=== PATIENT | female | born 1980 | race Caucasian/White ===

== ENCOUNTER 2020-02-27 12:51 | Outpatient (REF) | payer OTHER, BC, SELFPAY ==
[2020-02-27 14:34] LABS: Hematocrit 40.3 % (37-47); Hemoglobin 13.1 g/dl (12.0-16.0); Mean Corpuscular HGB Conc 32.5 g/dl (31.0-35.0); Mean Corpuscular Hemoglobin 28.2 pg (27.0-33.0); Mean Corpuscular Volume 86.7 fL (80-98); Mean Platelet Volume 10.3 fL (9.4-12.3); Platelet Count 355 X10*3/uL (160-400); Red Blood Count 4.65 X10*6/uL (4.20-5.50); White Blood Count 7.8 X10*3/uL (4.8-10.8)
[2020-02-27 15:13] LABS: Syphilis Screen Nonreactive (Nonreactive)
[2020-02-27 15:16] LABS: Thyroid Stimulating Hormone 1.57 mIU/mL (0.32-4.0)
[2020-02-27 17:17] LABS: CT PCR NOT DETECTED (Not Detect.); NG PCR NOT DETECTED (Not Detect.)
[2020-02-28 04:39] LABS: HBc Num1 0.07 S/CO (0.00-0.79); Hepatitis B Core Antibody Nonreactive (Nonreactive); ~HepC Num1 0.06 S/CO (0.00-0.79); ~Hepatitis C Antibody Nonreactive (Nonreactive)
== END 2020-02-27 12:52 | disposition home or self-care (01) ==
LOC: HO.LAB 12:51
PROVIDERS: PCP Internal Medicine; Referring Provider Internal Medicine; Visit Provider Advanced Practice Midwife
DX: Z01.419 Encounter for gynecological examination (general) (routine) without abnormal findings (principal); N92.0 Excessive and frequent menstruation with regular cycle; Z20.2 Contact with and (suspected) exposure to infections with a predominantly sexual mode of transmission
CPT/HCPCS: 36415; 84443; 85027; 86704; 86780; 86803; 87491; 87591

== ENCOUNTER 2020-02-27 14:09 | Outpatient (REF) | payer OTHER, BC, SELFPAY | END 2020-02-27 14:10 | disposition home or self-care (01) | LOC: HO.US 14:09 | PROVIDERS: Visit Provider Advanced Practice Midwife | DX: Z13.89 Encounter for screening for other disorder (principal) ==

== ENCOUNTER 2020-03-01 13:34 | Outpatient (REF) | payer OTHER, BC, SELFPAY ==
--- NOTE | 2020-03-01 14:00 | US_ITS ---
EXAMINATION: US PELVIS COMPLETE US TRANSVAGINAL CLINICAL INFORMATION: Excessive and frequent menstruation. COMPARISON: None TECHNIQUE: Transabdominal and transvaginal ultrasound of the pelvis was performed. FINDINGS: The uterus is anteverted measuring 9.3 cm in length, 4.4 cm in AP and 5.6 cm in transverse dimensions. The endometrial thickness is 0.9 cm. The uterus has homogeneous echotexture. There are small anechoic nabothian cysts seen in the cervix. The right ovary measures 3.7 x 2.4 x 1.9 cm and volume 8.8 mL. There is an anechoic cyst, likely a corpus luteal cyst, measuring 2.5 x 1.5 x 2.0 cm. The left ovary measures 4.5 x 3.7 x 4.5 cm and volume 39.2 mL. There is an anechoic lesion with several echogenic septations and debris, likely a complex hemorrhagic cyst, measuring 4.1 x 3.2 x 4.0 cm. There is no free fluid in the pelvis. US/US transvaginal IMPRESSION: Unremarkable uterus. Nabothian cysts in the cervix. Complex hemorrhagic cyst left ovary. The right ovary is unremarkable.
--- NOTE | 2020-03-01 14:00 | US_ITS ---
EXAMINATION: US PELVIS COMPLETE US TRANSVAGINAL CLINICAL INFORMATION: Excessive and frequent menstruation. COMPARISON: None TECHNIQUE: Transabdominal and transvaginal ultrasound of the pelvis was performed. FINDINGS: The uterus is anteverted measuring 9.3 cm in length, 4.4 cm in AP and 5.6 cm in transverse dimensions. The endometrial thickness is 0.9 cm. The uterus has homogeneous echotexture. There are small anechoic nabothian cysts seen in the cervix. The right ovary measures 3.7 x 2.4 x 1.9 cm and volume 8.8 mL. There is an anechoic cyst, likely a corpus luteal cyst, measuring 2.5 x 1.5 x 2.0 cm. The left ovary measures 4.5 x 3.7 x 4.5 cm and volume 39.2 mL. There is an anechoic lesion with several echogenic septations and debris, likely a complex hemorrhagic cyst, measuring 4.1 x 3.2 x 4.0 cm. There is no free fluid in the pelvis. US/US pelvic complete IMPRESSION: Unremarkable uterus. Nabothian cysts in the cervix. Complex hemorrhagic cyst left ovary. The right ovary is unremarkable.
== END 2020-03-01 13:35 | disposition home or self-care (01) ==
LOC: HO.US 13:34
PROVIDERS: Visit Provider Advanced Practice Midwife
DX: N92.0 Excessive and frequent menstruation with regular cycle (principal)
CPT/HCPCS: 76830; 76856

== ENCOUNTER → 2020-03-08 12:02 | Outpatient (BNVA) | payer OTHER, BC, SELFPAY | PROVIDERS: PCP Internal Medicine; Visit Provider Advanced Practice Midwife | DX: Z76.89 Persons encountering health services in other specified circumstances (principal) ==

== ENCOUNTER 2020-03-10 10:14 | Outpatient (REF) | payer OTHER, BC, SELFPAY ==
[2020-03-12 08:18] LABS: HIV AB/AG Nonreactive (Nonreactive); HIV Num 1 0.07 S/CO (0.00-0.99)
== END 2020-03-10 10:15 | disposition home or self-care (01) ==
LOC: HO.LAB 10:14
PROVIDERS: PCP Internal Medicine; Visit Provider Advanced Practice Midwife
DX: Z20.2 Contact with and (suspected) exposure to infections with a predominantly sexual mode of transmission (principal)
CPT/HCPCS: 87389

== ENCOUNTER 2020-05-07 14:55 | Outpatient (REF) | payer OTHER, BC, SELFPAY ==
--- NOTE | 2020-05-07 15:00 | US_ITS ---
EXAMINATION: PELVIC ULTRASOUND CLINICAL INFORMATION: Follow-up left ovarian COMPARISON: Previous pelvic ultrasound 02/27/2020 TECHNIQUE: Transabdominal and transvaginal pelvic ultrasound was performed. Transvaginal exam was performed for better visualization of the ovaries. FINDINGS: The uterus is anteverted and measures 10 x 4.4 x 5.1 cm in dimension. No focal uterine lesion is seen. Endometrial thickness is normal estimated at 0.9 cm. There are nabothian cysts in the cervix. The right ovary is normal-appearing and measures 2.5 x 2.4 x 2 cm. The left ovary is enlarged and measures 4.8 x 5.2 x 3.9 cm, volume 51 mL. There is a 3.8 x 3 x 3.5 cm complex left ovarian cyst with thickened wall and internal echoes. This is similar appearing to previous exam. There is a new adjacent simple appearing left ovarian cyst measuring 1.6 x 1.2 x 1.5 cm. There is no fluid in the pelvis. US/US transvaginal IMPRESSION: Enlarged left ovary containing a 3.8 x 3 x 3.5 cm complex left ovarian cyst with thickened wall and internal echoes similar to February 2020 exam and new smaller simple 1.6 x 1.2 x 1.5 cm left ovarian cyst.
--- NOTE | 2020-05-07 15:00 | US_ITS ---
EXAMINATION: PELVIC ULTRASOUND CLINICAL INFORMATION: Follow-up left ovarian COMPARISON: Previous pelvic ultrasound 02/27/2020 TECHNIQUE: Transabdominal and transvaginal pelvic ultrasound was performed. Transvaginal exam was performed for better visualization of the ovaries. FINDINGS: The uterus is anteverted and measures 10 x 4.4 x 5.1 cm in dimension. No focal uterine lesion is seen. Endometrial thickness is normal estimated at 0.9 cm. There are nabothian cysts in the cervix. The right ovary is normal-appearing and measures 2.5 x 2.4 x 2 cm. The left ovary is enlarged and measures 4.8 x 5.2 x 3.9 cm, volume 51 mL. There is a 3.8 x 3 x 3.5 cm complex left ovarian cyst with thickened wall and internal echoes. This is similar appearing to previous exam. There is a new adjacent simple appearing left ovarian cyst measuring 1.6 x 1.2 x 1.5 cm. There is no fluid in the pelvis. US/US pelvic complete IMPRESSION: Enlarged left ovary containing a 3.8 x 3 x 3.5 cm complex left ovarian cyst with thickened wall and internal echoes similar to February 2020 exam and new smaller simple 1.6 x 1.2 x 1.5 cm left ovarian cyst.
== END 2020-05-07 14:56 | disposition home or self-care (01) ==
LOC: HO.US 14:55
PROVIDERS: Visit Provider Advanced Practice Midwife
DX: N83.209 Unspecified ovarian cyst, unspecified side (principal)
CPT/HCPCS: 76830; 76856

== ENCOUNTER → 2020-05-17 15:40 | Outpatient (BNVA) | payer OTHER, BC, SELFPAY | PROVIDERS: PCP Internal Medicine; Referring Provider Internal Medicine; Visit Provider Advanced Practice Midwife ==

== ENCOUNTER 2020-05-18 15:27 | Outpatient (REF) | payer OTHER, BC, SELFPAY ==
[2020-05-19 09:32] LABS: CA-125 21 U/mL (<35)
== END 2020-05-18 15:28 | disposition home or self-care (01) ==
LOC: HO.LAB 15:27
PROVIDERS: PCP Internal Medicine; Visit Provider Advanced Practice Midwife
DX: N83.292 Other ovarian cyst, left side (principal)
CPT/HCPCS: 36415; 86304

== ENCOUNTER 2020-10-27 05:00 | Emergency (ER) | payer OTHER, BC, SELFPAY ==
--- NOTE | ~2020-10-27 | CT_ITS ---
EXAMINATION: CT HEAD WITHOUT CONTRAST CLINICAL INFORMATION: Syncope. Positive LOC. COMPARISON: None TECHNIQUE: Contiguous axial imaging was performed from the skull base to vertex without intravenous administration of contrast. This CT examination was performed using dose optimization techniques as appropriate, variously including the following: *Automated exposure control *Adjustment of mA and/or kV according to patient size (this includes techniques or standardized protocols for targeted exams where dose is matched to indication/reason for exam; i.e. extremities or head) *Use of iterative reconstruction technique DLP: 619.0 mGy-cm FINDINGS: There is no evidence of acute intracranial hemorrhage or territorial infarction. No abnormal mass effect or midline shift is seen. Jeronimo to white matter differentiation is well preserved. No extra-axial fluid collections are identified. The ventricles are normal in size. There is no abnormal attenuation within the brain parenchyma. The osseous structures and soft tissues are normal. The mastoid air cells and visualized portions of the paranasal sinuses are well aerated. CT/CT head/brain wo con IMPRESSION: No acute intracranial pathology.
[2020-10-27 05:03] VITALS: BP 95/51; PULSE 72; RESP 16; TEMP 36.4; O2SAT 98; BMI 30.2
--- NOTE | 2020-10-27 05:11 | ECG_ITS ---
Test Reason : SYNCOPE Blood Pressure : / mmHG Vent. Rate : 059 BPM Atrial Rate : 059 BPM P-R Int : 156 ms QRS Dur : 082 ms QT Int : 418 ms P-R-T Axes : 021 030 024 degrees QTc Int : 413 ms Sinus bradycardia Cannot rule out Anterior infarct , age undetermined Abnormal ECG No previous ECGs available Referred By: Generic ED Physician Electronically Signed By:IOANA RUDOLPH MD
[2020-10-27 05:47] VITALS: BP 103/61; BP 105/62; PULSE 66
[2020-10-27 05:49] VITALS: BP 101/71; PULSE 78
--- NOTE | 2020-10-27 05:57 | PC.NURSE ---
PT IS C/O BLISTER LOOKING HIVES TO LEFT ARM AND BETWEEN THIGHS. PT CHG INTO GOWN. LABS DRAWN TO LAB, EKG OBTAINED TO . PT UP TO RESTROOM FOR URINE SAMPLE SENT TO LAB FOR EVAL. PT AWAITING FOR PENDING ORDERS.
[2020-10-27 05:59] LABS: MANUAL DIFF FLAG NO
[2020-10-27 06:00] LABS: Basophils Percent Auto 0.3 % (0-2); Eosinophils Absolute Auto 0.2 X10*3/uL (0.0-0.4); Eosinophils Percent Auto 2.2 % (0-4); Hematocrit 38.4 % (37-47); Hemoglobin 12.8 g/dl (12.0-16.0); Imm Gran Abs Auto 0.02 X10*3/uL (0.00-0.03); Imm Gran Pct Auto 0.3 % (0.0-0.4); Lymphocytes Absolute Auto 2.4 X10*3/uL (1.2-4.9); Lymphocytes Percent Auto 31.9 % (20-40); Mean Corpuscular HGB Conc 33.3 g/dl (31.0-35.0); Mean Corpuscular Hemoglobin 29.1 pg (27.0-33.0); Mean Corpuscular Volume 87.3 fL (80-98); Mean Platelet Volume 9.7 fL (9.4-12.3); Monocytes Absolute Auto 0.5 X10*3/uL (0.1-1.2); Monocytes Percent Auto 7.2 % (2-11); Neutrophils Absolute Auto 4.3 X10*3/uL (2.0-8.3); Neutrophils Percent Auto 58.1 % (45-73); Platelet Count 345 X10*3/uL (160-400); Red Cell Distribution Width 12.6 % (11.0-16.0); White Blood Count 7.4 X10*3/uL (4.8-10.8)
[2020-10-27 06:10] LABS: Glucose Urine UA NEG (NEG); Leukocyte Esterase Urine NEG (NEG); Nitrite Urine NEG (NEG); Specific Gravity - Urine 1.025 (1.005-1.025); Urine Blood 3+ (NEG); Urine Ketones NEG (NEG); Urine Protein NEG (NEG-TRACE)
[2020-10-27 06:13] LABS: Appearance Urine HAZY; Color Urine DARK YELLOW; UPreg QC Valid YES; Urine Pregnancy NEGATIVE (NEGATIVE)
[2020-10-27 06:19] LABS: Mucus Urine 1+ /LPF; Squamous Epithelial Cell Urine TRACE /LPF; WBC Urine 0-2 /HPF (0-4)
[2020-10-27 06:36] LABS: Anion Gap 13 (12-20); Blood Urea Nitrogen 12 mg/dL (9-16); Carbon Dioxide 26 mmol/L (22-29); Chloride 105 mmol/L (96-108); Estimated Glomerular Filt Rate > 60; Glucose Random 96 mg/dL (60-115); Sodium 140 mmol/L (135-145)
[2020-10-27 07:11] VITALS: BP 101/71; PULSE 79; RESP 15; TEMP 36.7; O2SAT 99
--- NOTE | 2020-10-27 07:15 | ED_ITS ---
HPI - Syncope General Chief Complaint: Syncope Stated Complaint: hives/fall? Time Seen by Provider: 10/27/20 05:43 Source: patient and family ( ) Mode of arrival: ambulatory Limitations: no limitations History of Present Illness HPI narrative: 39-year-old female who presents emergency department for evaluation of swollen lip, urticarial rash and syncope. The patient had a complex left ovarian cyst and left fallopian to remove on Thursday10/23/2020 ( 5 days prior to arrival). She states that she has been taking ibuprofen, Tylenol and oxycodone for her pain. She states that she has had [id number] vaginal bleeding since the surgery, she soaked through 2 pads per day. She states that she woke up this morning at 4:00 a.m. and noted swelling in her lip. She also noted a pruritic rash on her body. She went to the bathroom and then had a syncopal episode. Her heard her fall and found her lying on the bathroom floor. He states that she was unresponsive for approximately 5 minutes. The patient was incontinent of urine and there was blood on the floor secondary to vaginal bleeding. The patient is not certain if she hit her head but she does have a mild headache. She states that she is having pain in her lower abdomen secondary to the surgery, this is [id number], dull diffuse pain which is not changed. She states she has a slight sore throat but she believes is secondary to intubation for the surgery. The patient states that she gets low blood pressure and has passed out before in the past. Related Data Home Medications Medication Instructions Recorded Confirmed No Known Home Meds 05/17/20 Allergies Allergy/AdvReac Type Severity Reaction Status Date / Time succinylcholine Allergy Unknown unk Verified 10/27/20 05:03 Review of Systems Review of Systems: Yes all other systems are reviewed and are negative [facility] Past Medical History [facility] Narrative: Past medical history: Hypotension causing syncope. Past surgical history: Left follow-up wound to and ovarian cyst remove (5 days prior). Social history: The patient is , she denies tobacco, alcohol an d drug use. Surgical History Hx of tubal ligation Family History Family History Mother Uterine cancer Maternal Aunt Breast cancer Maternal Grandmother Colon cancer Social History Social History Alcohol intake: never Advance Directives: No Advance Directives Information Provided: No Sexual orientation: Straight/Heterosexual Gender identity: female Physical Exam Vital Signs: Vital Signs: Last Vital Signs Temp 98.0 F 10/27/20 07:11 Pulse 79 10/27/20 07:11 Resp 15 10/27/20 07:11 BP 101/71 10/27/20 07:11 Pulse Ox 99 10/27/20 07:11 Body Mass Index 30.2 Const: General: cooperative and healthy appearing Orientation/consci ousness: oriented to person and oriented to place Limitations: no limitations HENMT: Head: Yes normal to inspection, Yes normocephalic and Yes atraumatic Ears: external ears normal General nose exam: Normal external nose present Face and sinus: Yes normal facial exam Mouth: Normal oral and palatal mucosa present Throat: Yes posterior oropharynx normal Eyes: Periorbital: periorbital findings normal Eyelids: Yes eyelids normal Conjunctivae: conjunctivae normal Sclerae: sclerae normal Corneas: corneas normal Pupils: Equal, round and reactive pupils present Direct Ophthalmoscopy: normal light reflex Neck: Neck: Yes full ROM, Yes no lymphadenopathy, Yes no meningeal signs, Yes trachea midline and Yes supple Chest: Chest palpation & inspection: normal inspection of the chest and normal palpation of entire chest wall Resp: Effort & Inspection: normal respiratory effort and able to speak in complete sentences Auscultation: clear to auscultation bilaterally Cardio: Rate: regular rate Rhythm: regular rhythm Heart sounds: S1 normal heart sound present, S2 normal heart sound present and no murmurs GI: Other: The patient's laparoscopic sites are intact and there was no evidence infection, the patient's abdomen does not appear to be distended, she has normoactive bowel sounds, she has [id number] diffuse tenderness of her abdomen, she has normoactive bowel sounds. : General: Yes no CVA tenderness Back/Spine/Pelvis: Back: no CVA tenderness Cervical Spine: normal cervical lordosis Thoracic/Lumbar Spine: thoracic and lumbar spine normal to inspection Skin: Other: The patient has a diffuse urticarial rash which blanches with pressure. Neuro: General: oriented to person, oriented to place and no meningeal signs Cranial nerves: Yes CN's II-XII intact bilaterally and Yes Equal, round and reactive pupils present Cognition (Neuro): normal cognition Motor exam (neuro): 5/5 motor strength present throughout Extrem: General: Yes normal to inspection and Yes full ROM Psych: Appearance: well kempt Mental Status: mental status grossly normal Speech and movement: Normal speech and movement present Affect: normal affect Attitude: cooperative Thought process: Normal thought process present Thought content: Normal thought content present Course Course Course Narrative: 39-year-old female 5 days status post left complex ovarian cyst removal and left fallopian tube removal who presents emergency department with lip swelling, diffuse urticarial rash and syncopal episode. Patient's physical examination did reveal a diffuse urticarial rash which is consistent with allergic reaction most likely secondary to oxycodone however ibuprofen and acetaminophen also need to be considered. The patient's abdomen is consistent with postoperative pain from her surgery. Her neurologic exam was nonfocal. Laboratory evaluation revealed a normal CBC and basic metabolic panel. I do not think that her syncopal episode was caused by her surgery but his problem related to her low blood pressure and vasovagal syncope that she has had in the past which was triggered by her allergic reaction. I did order CT scan of the brain to rule out skull fracture and bleed. The patient will be treated with Solu-Medrol 125 mg IV, Benadryl 50 mg IV and Pepcid 20 mg IV. 0801: The patient's CT scan of the head without IV contrast revealed no fracture or bleed. The patient's rash has completely resolved and she is feeling better. The patient was started on prednisone 40 mg once a day for 5 days, Benadryl 50 mg every 4-6 hours and Pepcid 20 mg once a day for 5 days. The patient was given verbal and printed instructions prior to discharge. The patient was advised to follow-up with their PCP in 2 days and to return to the emergency department if their symptoms get worse or if they develop any new symptoms that are concerning to them. MDM - Syncope Lab Data Result diagrams: 10/27/20 05:41 10/27/20 05:41 Labs: Lab Results 10/27/20 10/27/20 10/27/20 Range/Units 05:41 05:41 06:02 WBC 7.4 (4.8-10.8) X10*3/uL RBC 4.40 (4.20-5.50) X10*6/uL Hgb 12.8 (12.0-16.0) g/dl Hct 38.4 (37-47) % MCV 87.3 (80-98) fL MCH 29.1 (27.0-33.0) pg MCHC 33.3 (31.0-35.0) g/dl RDW 12.6 (11.0-16.0) % Plt Count 345 (160-400) X10*3/uL MPV 9.7 (9.4-12.3) fL Immature Gran % (Auto) 0.3 (0.0-0.4) % Neut % (Auto) 58.1 (45-73) % Lymph % (Auto) 31.9 (20-40) % Marshall % (Auto) 7.2 (2-11) % Eos % (Auto) 2.2 (0-4) % Baso % (Auto) 0.3 (0-2) % Lymph # (Auto) 2.4 (1.2-4.9) X10*3/uL Marshall # (Auto) 0.5 (0.1-1.2) X10*3/uL Eos # (Auto) 0.2 (0.0-0.4) X10*3/uL Baso # (Auto) 0.0 (0.0-0.2) X10*3/uL Abs Immat Gran (auto) 0.02 (0.00-0.03) X10*3/uL Absolute Neuts (auto) 4.3 (2.0-8.3) X10*3/uL Absolute Nucleated RBC 0.000 (0.0-0.012) X10*3/uL Nucleated RBC % (auto) 0.0 (0.0-0.2) /100WBC Sodium 140 (135-145) mmol/L Potassium 4.0 (3.3-5.1) mmol/L Chloride 105 (96-108) mmol/L Carbon Dioxide 26 (22-29) mmol/L Anion Gap 13 (12-20) BUN 12 (9-16) mg/dL Creatinine 0.89 (0.5-1.4) mg/dL Estim Creat Clear Calc 78.0 Estimated GFR > 60 Random Glucose 96 (60-115) mg/dL Calcium 9.0 (8.4-10.2) mg/dL Urine Color DARK YELLOW Urine Appearance HAZY Urine pH 6.0 (5.0-8.0) Ur Specific [place] 1.025 (1.005-1.025) Urine Protein NEG (NEG-TRACE) MG/DL Urine Glucose (UA) NEG (NEG) MG/DL Urine Ketones NEG (NEG) MG/DL Urine Blood 3+ H (NEG) Urine Nitrite NEG (NEG) Ur Leukocyte Esterase NEG (NEG) Urine RBC 76-150 H (0) /HPF Urine WBC 0-2 (0-4) /HPF Ur Squamous Epith Cells TRACE /LPF Urine Bacteria NONE /LPF Urine Mucus 1+ /LPF Urine Test (NEGATIVE) 10/27/20 Range/Units 06:02 WBC (4.8-10.8) X10*3/uL RBC (4.20-5.50) X10*6/uL Hgb (12.0-16.0) g/dl Hct (37-47) % MCV (80-98) fL MCH (27.0-33.0) pg MCHC (31.0-35.0) g/dl RDW (11.0-16.0) % Plt Count (160-400) X10*3/uL MPV (9.4-12.3) fL Immature Gran % (Auto) (0.0-0.4) % Neut % (Auto) (45-73) % Lymph % (Auto) (20-40) % Marshall % (Auto) (2-11) % Eos % (Auto) (0-4) % Baso % (Auto) (0-2) % Lymph # (Auto) (1.2-4.9) X10*3/uL Marshall # (Auto) (0.1-1.2) X10*3/uL Eos # (Auto) (0.0-0.4) X10*3/uL Baso # (Auto) (0.0-0.2) X10*3/uL Abs Immat Gran (auto) (0.00-0.03) X10*3/uL Absolute Neuts (auto) (2.0-8.3) X10*3/uL Absolute Nucleated RBC (0.0-0.012) X10*3/uL Nucleated RBC % (auto) (0.0-0.2) /100WBC Sodium (135-145) mmol/L Potassium (3.3-5.1) mmol/L Chloride (96-108) mmol/L Carbon Dioxide (22-29) mmol/L Anion Gap (12-20) BUN (9-16) mg/dL Creatinine (0.5-1.4) mg/dL Estim Creat Clear Calc Estimated GFR Random Glucose (60-115) mg/dL Calcium (8.4-10.2) mg/dL Urine Color Urine Appearance Urine pH (5.0-8.0) Ur Specific [place] (1.005-1.025) Urine Protein (NEG-TRACE) MG/DL Urine Glucose (UA) (NEG) MG/DL Urine Ketones (NEG) MG/DL Urine Blood (NEG) Urine Nitrite (NEG) Ur Leukocyte Esterase (NEG) Urine RBC (0) /HPF Urine WBC (0-4) /HPF Ur Squamous Epith Cells /LPF Urine Bacteria /LPF Urine Mucus /LPF Urine Test NEGATIVE (NEGATIVE) ECG Data Attestation: I personally reviewed and interpreted this ECG as follows: Interpretation: 0545: Sinus bradycardia with a rate of 59, normal [place] interval, QRS duration and QTC interval, no ST segment elevation, no ST segment depression, inverted T-waves V1 and V2, no PACs, no PVCs. This is a normal EKG. Discharge Plan Discharge Clinical Impression: Vasovagal syncope, Allergic urticaria Closed head injury Qualifiers: Encounter type: initial encounter Qualified Code(s): S09.90XA - Unspecified injury of head, initial encounter Patient Disposition: Home, Self-Care Instructions: Allergies (ED), Head Injury (ED) Additional Instructions: Your blood work was normal. The CT scan of your head revealed no skull fracture or bleeding in the brain. Your presentation is consistent with an allergic reaction most likely secondary to oxycodone. Stop taking oxycodone and do not take this medication again in the future. Take prednisone 20 mg pills, 2 pills once a day for 5 days. Take Pepcid 20 mg pills, 1 pill once a day for 5 days. Take Benadryl 25 mg pills, 2 pills every 4-6 hours as needed for rash and itchiness. Take this at least 3 times today then after today you can take it as needed. Follow-up with your doctor in 2 days. Follow-up with your doctor in 2 days. Please return to the emergency department if your symptoms get worse or if you develop any symptoms that are concerning to you. Prescriptions: No Action No Known Home Meds RF: 0
[2020-10-27] MEDS: methylPREDNISolone Sod Succ 125 MG/2 ML VIAL IVPUSH (07:26)
[2020-10-27] MEDS: diphenhydrAMINE HCL 50 MG/ML VIAL IVPUSH (07:26)
[2020-10-27] MEDS: Famotidine/PF 20 MG/2 ML VIAL IVPUSH (07:26)
== END 2020-10-27 08:15 | disposition home or self-care (01) ==
PROVIDERS: Student in an Organized Health Care Education/Training Program; Emergency Provider Emergency Medicine Emergency Medical Services; PCP Internal Medicine
DX: R55 Syncope and collapse (principal); L50.0 Allergic urticaria; S09.90XA Unspecified injury of head, initial encounter; I95.9 Hypotension, unspecified; W18.30XA Fall on same level, unspecified, initial encounter; Y93.9 Activity, unspecified; Y92.002 Bathroom of unspecified non-institutional (private) residence as the place of occurrence of the external cause; Y99.9 Unspecified external cause status; Z98.890 Other specified postprocedural states
CPT/HCPCS: 36415; 70450; 80048; 81001; 81025; 85025; 93005; 96374; 96375; 99284; J1200; J2930

== ENCOUNTER 2021-08-22 07:54 | Outpatient (REF) | payer OTHER, BC, SELFPAY ==
[2021-08-22 09:49] LABS: Hematocrit 37.9 % (37.0-47.0); Hemoglobin 12.4 g/dl (12.0-16.0); Mean Corpuscular HGB Conc 32.7 g/dl (31.0-35.0); Mean Corpuscular Hemoglobin 27.6 pg (27.0-33.0); Mean Corpuscular Volume 84.4 fL (80.0-98.0); Mean Platelet Volume 10.6 fL (9.4-12.3); Platelet Count 362 X10*3/uL (160-400); Red Blood Count 4.49 X10*6/uL (4.20-5.50); White Blood Count 6.2 X10*3/uL (4.8-10.8)
[2021-08-22 10:53] LABS: HCG Quantitative < 2 mIU/mL; TSH reflex Free T4 1.32 uIU/mL (0.32-4.0)
[2021-08-22 13:01] LABS: CT PCR NOT DETECTED (Not Detect.); NG PCR NOT DETECTED (Not Detect.)
[2021-08-24 14:45] LABS: HPV mRNA E6/E7 rflx Not Detected (Not Detected)
== END 2021-08-22 07:55 | disposition home or self-care (01) ==
LOC: HO.LAB 07:54
PROVIDERS: PCP Internal Medicine; Visit Provider Obstetrics & Gynecology
DX: Z01.411 Encounter for gynecological examination (general) (routine) with abnormal findings (principal); Z11.51 Encounter for screening for human papillomavirus (HPV); N93.9 Abnormal uterine and vaginal bleeding, unspecified
CPT/HCPCS: 36415; 81025; 84443; 84702; 85027; 87491; 87591; 87624; 88142

== ENCOUNTER 2021-09-11 15:19 | Outpatient (REF) | payer OTHER, BC, SELFPAY ==
--- NOTE | ~2021-09-11 | US_ITS ---
EXAMINATION: US PELVIS CLINICAL INFORMATION: Abnormal uterine and vaginal bleeding. COMPARISON: None TECHNIQUE: Ultrasound of the pelvis is performed using both transabdominal and transvaginal transducers along with Doppler. Transvaginal imaging is performed due to inadequate visualization transabdominally. FINDINGS: Uterus: The uterus is anteverted, retroflexed and measures 11.0 x 4.7 x 5.0 cm. The double wall endometrial thickness is 1.2 cm. The uterus is smooth in contour and has normal myometrial echogenicity. No visible fibroid. Adnexa: Both ovaries are visualized. There is normal color flow to the adnexa. There is no ovarian torsion. There is no pelvic ascites or fluid collection. Right ovary measures 3.1 x 2.5 x 2.1 cm and volume 8.5 mL. There are 2 anechoic cysts measuring 2.1 x 1.4 x 1.5 cm and 1.6 x 0.9 x 1.2 cm. Left ovary has been removed. There is no free fluid in the cul-de-sac. There are small anechoic nabothian cysts seen in the cervix. US/US pelvic and transvaginal IMPRESSION: Small nabothian cysts in the cervix. 2 right ovarian simple cysts. Left ovary has been removed. The uterus is unremarkable.
== END 2021-09-11 15:20 | disposition home or self-care (01) ==
LOC: HO.US 15:19
PROVIDERS: Visit Provider Obstetrics & Gynecology
DX: N93.9 Abnormal uterine and vaginal bleeding, unspecified (principal)
CPT/HCPCS: 76830; 76856

== ENCOUNTER 2021-09-25 10:09 | Outpatient (REF) | payer OTHER, BC, SELFPAY | END 2021-09-25 10:10 | disposition home or self-care (01) | LOC: HO.LAB 10:09 | PROVIDERS: PCP Internal Medicine; Visit Provider Obstetrics & Gynecology | DX: N93.9 Abnormal uterine and vaginal bleeding, unspecified (principal) | CPT/HCPCS: 58100; 88305 ==

== ENCOUNTER 2021-12-09 15:29 | Outpatient (REF) | payer OTHER, BC, SELFPAY ==
--- NOTE | ~2021-12-09 | MM_ITS ---
EXAMINATION: MM SCREENING DIGITAL BREAST TOMOSYNTHESIS, BILATERAL CLINICAL INFORMATION: Screening. Asymptomatic. No prior breast imaging. Age 41. The lifetime risk of breast cancer based on the Tyrer-Cuzick Model is 16%. COMPARISON: None (current study represents initial baseline exam). TECHNIQUE: Digital breast tomosynthesis is performed in both the craniocaudal and mediolateral oblique views along with computer-aided detection (CAD). Synthesized 2D images are generated from the tomosynthesis. FINDINGS: There are scattered areas of fibroglandular density (ACR BI-RADS breast composition Category b). Breast tissue composition borders on heterogeneously dense. There are scattered bilateral punctate round and some coarse round calcifications in each breast. There is no architectural abnormality. Left breast shows no mass. The axilla and skin contours are unremarkable. Right breast has bilobed versus 2 adjacent nodules mid 12:00 position with smooth margins and overall dimensions approximately 1.1 x 1.8 x 1.1 cm. As this represents initial baseline exam, patient will be recalled for additional imaging with targeted ultrasound. MM/MM tomosynthesis screening BI IMPRESSION: Right: -Smooth bilobed versus 2 adjacent nodules mid 12:00 position, 1.8 cm. Left: -No mammographic evidence of malignancy. ASSESSMENT: BI-RADS 0: Incomplete - Need Additional Imaging Evaluation RECOMMENDATION: 1. Targeted ultrasound right breast. 2. Radiology department staff will contact the patient for additional imaging. This patient's information was entered into a reminder system with a target due date for their next mammogram.
== END 2021-12-09 15:30 | disposition home or self-care (01) ==
LOC: HO.MAMMO 15:29
PROVIDERS: PCP Internal Medicine; Visit Provider Obstetrics & Gynecology
DX: Z12.31 Encounter for screening mammogram for malignant neoplasm of breast (principal)
CPT/HCPCS: 77063; 77067

== ENCOUNTER 2021-12-16 13:25 | Outpatient (REF) | payer OTHER, BC, SELFPAY ==
--- NOTE | ~2021-12-16 | US_ITS ---
EXAMINATION: US DIAGNOSTIC ULTRASOUND BREAST, RIGHT CLINICAL INFORMATION: Density 12:00 position 4 cm from the nipple. Patient has a family history of breast cancer with maternal grandmother and maternal aunt at the age of 46. COMPARISON: December 09, 2021. TECHNIQUE: Ultrasound of the breast is performed with real-time sanches scale imaging and color Doppler. FINDINGS: At approximately the 12:00 position 5 cm from nipple there is a bilobed hypoechoic structure whose borders I can't say are well-circumscribed. There also appear to be some internal echoes present. No increased through sound transmission or sound shadowing is appreciated. This may represent a complex cyst however I cannot exclude a solid lesion and ultrasound-guided core biopsy is recommended. Results are discussed with the patient at time of visit. Breast center records management director called referring provider's office with the above report. US/US breast RT limited IMPRESSION: Right breast mammographic density corresponds to hypoechoic lesion 12:00 position 5 cm from nipple which I cannot definitely say represents a cyst. Ultrasound-guided core biopsy is recommended. ASSESSMENT: BI-RADS 4: Suspicious (subcategory 4A: Low suspicion for malignancy) RECOMMENDATION: Ultrasound-guided core biopsy
== END 2021-12-16 13:26 | disposition home or self-care (01) ==
LOC: HO.MAMMO 13:25
PROVIDERS: PCP Internal Medicine; Visit Provider Obstetrics & Gynecology
DX: N63.15 Unspecified lump in the right breast, overlapping quadrants (principal)
CPT/HCPCS: 76642

== ENCOUNTER 2021-12-19 07:49 | Outpatient (REF) | payer OTHER, BC, SELFPAY ==
--- NOTE | ~2021-12-19 | MM_ITS ---
PROCEDURE: MM TOMOSYNTHESIS DIAGNOSTIC, RIGHT CLINICAL INFORMATION: Hypoechoic lesion deep adjacent to muscle wall with questionable irregular margins and no significant distal sound enhancement. This may represent a complex cyst. COMPARISON: 12/16/2021 and mammography of 12/09/2021. PROCEDURAL DETAILS: The details of the procedure, as well as the risks, benefits, and alternatives to the procedure were explained to the patient in detail and all of her questions were answered, after which written informed consent was obtained. Site and side were confirmed. Prior to the procedure, sonography revealed a hypoechoic lesion right breast 12 o'clock position, 5 cm from the nipple. A time out was performed, the lesion intended for aspiration was targeted, and the skin of the right breast was then prepped and draped in the usual sterile fashion. Using sonographic guidance, sterile technique, and 1% lidocaine without epinephrine for local anesthesia, an 18-gauge spinal needle was placed into the lesion and approximately 1 mL of thick black fluid was removed. No residual suspicious soft tissue mass is appreciated with collapse of the cyst. A clip was not placed. There was no evidence of immediate complication. DIGITAL POST-PROCEDURE MAMMOGRAPHY: Breast density: The tissue is heterogeneously dense which may obscure small masses. BI-RADS version 5, category C. The previously noted density is no longer definitely identified. The patient tolerated the procedure well and, after assuring adequate hemostasis, was discharged in good condition after reviewing post aspiration breast care instructions. MM/MM tomosynthesis diagnostic RT IMPRESSION: 1. No immediate complication from ultrasound-guided percutaneous aspiration right breast. 2. The 2-view direct digital postprocedure mammogram reveals satisfactory appearance following cyst aspiration. BI-RADS 2, benign. One-year screening mammogram suggested.
[2021-12-19] MEDS: Lidocaine HCl 1 % 20 ML VIAL 10 ML SUBCUT (08:49)
== END 2021-12-19 07:50 | disposition home or self-care (01) ==
LOC: HO.MAMMO 07:49
PROVIDERS: PCP Internal Medicine; Visit Provider Obstetrics & Gynecology
DX: R92.8 Other abnormal and inconclusive findings on diagnostic imaging of breast (principal)
CPT/HCPCS: 19083; 77061; 77065

== ENCOUNTER 2022-04-25 04:56 | Emergency (ER) | payer OTHER, BC, SELFPAY ==
--- NOTE | ~2022-04-25 | XR_ITS ---
EXAMINATION: XR CHEST CLINICAL INFORMATION: SOB. COMPARISON: None TECHNIQUE: 2 views of the chest were obtained. FINDINGS: The lungs are well-expanded and clear. The heart size and pulmonary vascularity is normal. There is mild dextro scoliosis lower dorsal spine. No aggressive lytic or sclerotic process seen. XR/XR chest 2V IMPRESSION: Unremarkable chest examination. Mild dextroscoliosis lower dorsal spine
[2022-04-25 05:08] VITALS: BP 125/81; PULSE 81; RESP 20; TEMP 37.4; O2SAT 97; BMI 32.1
[2022-04-25 05:38] LABS: COVID-19 Test Negative (Negative); IDNOW Serial# BCCEAD1C
[2022-04-25 05:43] LABS: IDNOW Serial# 16C4AD1C; Influenza A Positive (Negative); Influenza B2 Negative (Negative)
[2022-04-25 07:18] VITALS: BP 115/82; PULSE 80; RESP 18; TEMP 36.6; O2SAT 99
--- NOTE | 2022-04-25 08:02 | ED_ITS ---
HPI - URI/Sore Throat General Chief Complaint: Upper Respiratory Symptoms Stated Complaint: Fever/Sob Time Seen by Provider: 04/25/22 08:02 Source: patient and family Mode of arrival: ambulatory Limitations: no limitations History of Present Illness HPI Narrative: 41-year-old female otherwise healthy who presents to the ER for evaluation of 4 days of body aches, headaches, nasal congestion, runny nose, cough associated with rattling breathing. She states she feels there are noise in her chest when she takes deep breaths. It is she feels she is having some shortness of breath and difficulty breathing. She denies any pulmonary history, she is a nonsmoker. She states her partner is also home with similar symptoms, except hers are worse. She denies any chest pain but she does have some chest discomfort associated with coughing. She is bringing up white phlegm. She has had intermittent fevers on and off since Thursday. MD elicited complaint: fever, cough, rhinorrhea, nasal congestion and other (Shortness of breath) Onset (ago): day(s) (4) Consistency: progressively worsening Severity: moderate Description of mucous: clear and watery Able to tolerate fluids by mouth: Yes Exacerbating factors: nothing Relieving factors: nothing Context: sick contacts Associated symptoms: fever, chills, myalgias, headache, rhinorrhea, nasal congestion, sore throat, cough and shortness of breath Treatments prior to arrival: none Related Data Previous Rx's Medication Instructions Recorded medroxyprogesterone 10 mg tablet 10 mg PO DAILY 10 days #30 tabs 02/11/22 (Provera) hydrocodone-homatropine 5 mg-1.5 5 ml PO Q4-6H PRN cough #60 mL 04/25/22 mg/5 mL (5 mL) oral syrup (Hycodan) prednisone 20 mg tablet 40 mg PO DAILY #10 tabs 04/25/22 Allergies Allergy/AdvReac Type Severity Reaction Status Date / Time succinylcholine Allergy Unknown unk Verified 04/25/22 05:11 Review of Systems Review of Systems: Constitutional: + Fever, No Chills ENT/Mouth: + sore throat, No Rhinorrhea, No Swallowing Difficulty Eyes: No Eye Pain, No Swelling, No Redness Cardiovascular: No Chest Pain, + SOB, No Orthopnea, No Edema Respiratory: + Cough, + Sputum, + Wheezing, No dyspnea Gastrointestinal: No Nausea, No Vomiting, No Diarrhea, No abdominal Pain Musculoskeletal: No joint pain, +Myalgias Skin: No Skin Lesions, No rash Neuro: No Weakness, No Numbness, No Dizziness, + Headache Heme/Lymph: No Bruising, No Lymphadenopathy [facility] Past Medical History Surgical History History of left salpingo-oophorectomy Hx of tubal ligation Family History Family History Mother Uterine cancer Maternal Aunt Breast cancer Maternal Grandmother Colon cancer Social History Social History Alcohol intake: never Patient Tobacco Use Status: Never used Tobacco Advance Directives: No Advance Directives Information Provided: Yes Sexual orientation: Straight/Heterosexual Gender identity: Female Physical Exam Vital Signs: Vital Signs: Last Vital Signs Temp 98.0 F 04/25/22 08:16 Pulse 78 04/25/22 08:16 Resp 18 04/25/22 08:44 BP 119/79 04/25/22 08:16 Pulse Ox 98 04/25/22 08:44 O2 Del Method 04/25/22 08:44 BMI result Body Mass Index 32.1 Appearance: Alert. Oriented X3. No acute distress. Eyes: Pupils equal, round and reactive to light. ENT: Pharynx normal. Moist mucous membranes. No tonsillar swelling or exudate. Uvula midline. Neck: Normal inspection. Neck supple. CVS: Normal heart rate and rhythm. Pulses normal. Respiratory: No respiratory distress. Scattered inspiratory and expiratory wheezes throughout with rhonchi at the bilateral bases. Congested cough. Abdomen: Soft and nontender. +BS x4 Skin: Skin warm and dry. Normal skin color. Normal skin turgor. No rashes. Extremities: No lower extremity edema. No lower extremity swelling or tenderness. Neuro: Oriented X 3. Grossly normal, nonfocal Course Course Course Narrative: 41-year-old female presenting to the ER for evaluation of flu-like symptoms and rattling sensation when she breathes. On arrival to the ER she is hemodynamically stable and oxygenating well. On examination her lungs scattered wheezing and rhonchi. She is positive for influenza A. Most likely viral process but will get chest x-ray to rule out bacterial pneumonia. Will give her albuterol inhaler and reassess. Reevaluation(s) Reevaluation #1: Chest x-ray without pneumonia. Patient given albuterol inhaler with significant improvement in wheezing and rhonchi. Lung sounds are now clear. Will discharge with prednisone and antitussive. Stable for discharge home. Patient agrees with plan. Medications Administered Discontinued Medications Generic Name Dose Route Start Last Admin Trade Name Freq PRN Reason Stop Dose Admin Albuterol Sulfate 2 puff 04/25/22 08:14 04/25/22 08:27 Albuterol Sulfate 90 Mcg 8 Gm Inhaler INHALE 04/25/22 08:15 2 puff ONCE ONE Administration Medical Decision Making Lab Data Labs: Lab Results 04/25/22 04/25/22 Range/Units 05:12 05:12 COVID-19 (MYRIAM) Negative (Negative) COVID-19 Clin Com See Note Influenza Type A (BELLA) Positive A (Negative) Influenza Type B (BELLA) Negative (Negative) Influenza A & B Note See Note Discharge Plan Discharge Clinical Impression: Influenza Patient Disposition: Home, Self-Care Instructions: Influenza (ED) Additional Instructions: You were found to be Influenza A POSITIVE today. Your x-ray and oxygen levels were normal. Rest. Drink plenty of fluids. Do not go out in public while you are not feeling well. Take over the counter cold/flu medications as needed for your symptoms. Use the prescribed inhaler as directed, you can use this every 4 hours as needed for shortness of breath or wheezing. Take the prescribed steroid as directed, complete the entire course. Take the prescribed cough medicine as needed for coughing. Do not drive after taking this, can make you drowsy. Take Tylenol and/or Motrin as needed for fevers and body aches. Follow up with your doctor as needed If you shortness of breath worsens, if you develop difficulty breathing or any other concerning symptom come back to the ER for further evaluation. Prescriptions: New prednisone 20 mg tablet 40 mg PO DAILY Qty: 10 0RF hydrocodone-homatropine [Hycodan] 5-1.5 mg/5 mL (5 mL) syrup 5 ml PO Q4-6H PRN (Reason: cough) Qty: 60 0RF Rx Instructions: Partial Fill upon patient request. No Action medroxyprogesterone [Provera] 10 mg tablet 10 mg PO DAILY 10 Days Qty: 30 3RF Rx Instructions: start Provera 1 tablet daily from day 15-24 cyclically every months, day 1 being 1st day of menses Stand Alone Forms: Work/School Release
[2022-04-25 08:16] VITALS: BP 119/79; PULSE 78; RESP 18; TEMP 36.7; O2SAT 98
[2022-04-25] MEDS: Albuterol Sulfate 90 MCG 8 GM INHALER 2 PUFF INHALE (08:27)
[2022-04-25 08:44] VITALS: RESP 18; O2SAT 98
== END 2022-04-25 09:21 | disposition home or self-care (01) ==
PROVIDERS: Emergency Provider Student in an Organized Health Care Education/Training Program; PCP Internal Medicine
DX: R50.9 Fever, unspecified (principal); J10.1 Influenza due to other identified influenza virus with other respiratory manifestations; R06.02 Shortness of breath; M79.10 Myalgia, unspecified site; Z20.822 Contact with and (suspected) exposure to COVID-19; Z79.899 Other long term (current) drug therapy
CPT/HCPCS: 71046; 87502; 87635; 99283; 99284

== ENCOUNTER → 2022-08-12 15:07 | Outpatient (BNVA) | payer OTHER, BC, SELFPAY | PROVIDERS: PCP Internal Medicine; Visit Provider Obstetrics & Gynecology | DX: Z13.89 Encounter for screening for other disorder (principal) ==

== ENCOUNTER 2022-12-15 15:42 | Outpatient (REF) | payer OTHER, BC, SELFPAY ==
--- NOTE | ~2022-12-15 | MM_ITS ---
EXAMINATION: MM SCREENING DIGITAL BREAST TOMOSYNTHESIS, BILATERAL CLINICAL INFORMATION: Screening. Asymptomatic. COMPARISON: Mammography: This study is compared with prior exams dating back to 2021. TECHNIQUE: Digital breast tomosynthesis is performed in both the craniocaudal and mediolateral oblique views along with computer-aided detection (CAD). Synthesized 2D images are generated from the tomosynthesis. FINDINGS: The breasts are heterogeneously dense, which may obscure small masses (ACR BI-RADS breast composition Category c). There are no significant masses, abnormal calcifications, or other abnormalities. MM/MM tomosynthesis screening BI IMPRESSION: No mammographic evidence of malignancy. ASSESSMENT: BI-RADS BI-RADS 1 - Negative RECOMMENDATION: Routine annual mammography screening. 1 year F/U This examination should not preclude the clinical evaluation of a suspicious palpable abnormality. This patient's information was entered into a reminder system with a target due date for their next mammogram.
== END 2022-12-15 15:43 | disposition home or self-care (01) ==
LOC: HO.MAMMO 15:42
PROVIDERS: PCP Internal Medicine; Visit Provider Internal Medicine
DX: Z12.31 Encounter for screening mammogram for malignant neoplasm of breast (principal)
CPT/HCPCS: 77063; 77067

== ENCOUNTER → 2022-12-15 16:00 | Outpatient (BNV) | payer OTHER, BC, SELFPAY | PROVIDERS: PCP Internal Medicine; Visit Provider Radiology Diagnostic Radiology | DX: Z12.31 Encounter for screening mammogram for malignant neoplasm of breast (principal) | CPT/HCPCS: 77063; 77067 ==

== ENCOUNTER 2023-08-17 14:58 | Outpatient (AMB) | payer OTHER, BC, SELFPAY ==
--- NOTE | 2023-08-17 15:02 | A.OFFVIS_ITS ---
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 Sexual orientation: Straight/Heterosexual Gender identity: Female Female Reproductive History Menstrual Age of Menarche: 11 Duration of menses: 6-7 days Date of last menstrual period: 07/27/23 control method: permanent sterilization Permanent Sterilization: BTL Total pregnancies: 2 Full term: 2 Number of Living Children: 2 Date of last pap smear: 08/22/21 (neg pap and hpv) Date of Mammogram: 12/15/22 Review of Systems Const All systems reviewed & are unremarkable except as noted in HPI and below Card Reports as per HPI Resp Reports as per HPI GI Reports as per HPI and Reports no additional complaints Reports as per HPI Physical Exam Vital Signs: Last Vital Signs BP 92/60 08/17/23 15:03 BMI result Body Mass Index 33.4 Const General: cooperative, healthy appearing and comfortable Chest Chest palpation & inspection: normal inspection of the chest and normal palpation of entire chest wall Breast/axilla inspection: normal inspection of the breasts and normal inspection of the axillae Breast/axilla palpation: normal palpation of the breasts, normal palpation of the axillae and no axillary lymphadenopathy Resp Effort & Inspection: normal respiratory effort Auscultation: clear to auscultation bilaterally Percussion: percussion normal Cardio Palpation: normal PMI Rate: regular rate Rhythm: regular rhythm Heart sounds: no murmurs and no rubs Peripheral pulses: Peripheral pulses 2+ throughout GI Inspection: Yes normal to inspection Palpation (GI): Soft to palpation, nontender, no guarding, not rigid and No hepatosplenomegaly present Percussion: Yes normal to percussion Auscultation: normal bowel sounds Rectal Exam - Female: deferred General: Yes bladder normal to palpation External Female Exam: No lesion Speculum Exam - Vagina: normal appearance of the vagina, normal palpation, normal vaginal discharge and not erythematous Speculum Exam - Cervix: normal appearance of the cervix and normal palpation Bimanual exam- vagina & uterus: normal bimanual exam, normal palpation, uterine size normal, bladder normal to palpation, consistency normal and normal palpation Bimanual Exam- Adnexa, other: normal adnexae, no masses and no tenderness Assessment & Plan Assessment & Plan (1) Well woman exam: Code(s): Z01.419 - Encounter for gynecological examination (general) (routine) without abnormal findings Category: Medical Plan: Cotesting not indicated this Instructions given the patient to schedule next screening Mammogram in 12/18. Counseled the patient about the recommended dietary allowance of 1000 mg of Calcium & 600 IU of vitamin D. The patient was instructed to perform monthly self-breast exams and to schedule an annual exam in a year; All questions answered and the patient verbalized understanding. Instructed the patient to schedule annual exam in a year (2) Abnormal ultrasound of breast: Code(s): R92.8 - Other abnormal and inconclusive findings on diagnostic imaging of breast Category: Medical Plan: Co testing not indicated this, GC and chlamydia taken CBC, prolactin, TSH, HCG, and pelvic ultrasound ordered. Discussed with the patient the different causes of abnormal bleeding including thyroid disorders, uterine and ovarian pathology, endometrial hyperplasia, carcinoma and other potential causes. Discussed with the patient the work up including CBC (to r/o anemia), TSH, pelvic Ultrasound, endometrial biopsy to r/o endometrial pathology. All questions answered and the patient verbalized understanding. Instructed the patient to schedule an appointment for an endometrial biopsy in 2 weeks. Orders: Orders Complete Blood Count no Diff Today N93.9 - Abnormal uterine and vaginal bleeding, unspecified Prolactin Today N93.9 - Abnormal uterine and vaginal bleeding, unspecified HCG Quantitative Today N93.9 - Abnormal uterine and vaginal bleeding, uns pecified TSH reflex Free T4 Today N93.9 - Abnormal uterine and vaginal bleeding, unspecified US pelvic and transvaginal Today N93.9 - Abnormal uterine and vaginal bleeding, unspecified
[2023-08-17 15:03] VITALS: BP 92/60; BMI 33.4
== END 2023-08-17 15:33 | disposition home or self-care (01) ==
LOC: HO.HWS 14:59
PROVIDERS: PCP Internal Medicine; Visit Provider Obstetrics & Gynecology
DX: Z01.419 Encounter for gynecological examination (general) (routine) without abnormal findings (principal); R92.8 Other abnormal and inconclusive findings on diagnostic imaging of breast
CPT/HCPCS: 99396

== ENCOUNTER 2023-08-17 15:31 | Outpatient (REF) | payer OTHER, BC, SELFPAY ==
[2023-08-17 16:17] LABS: Hematocrit 38.7 % (37.0-47.0); Hemoglobin 12.9 g/dl (12.0-16.0); Mean Corpuscular HGB Conc 33.3 g/dl (31.0-35.0); Mean Corpuscular Hemoglobin 28.4 pg (27.0-33.0); Mean Corpuscular Volume 85.1 fL (80.0-98.0); Mean Platelet Volume 9.9 fL (9.4-12.3); Platelet Count 323 X10*3/uL (160-400); Red Blood Count 4.55 X10*6/uL (4.20-5.50); Red Cell Distribution Width 12.8 % (11.0-16.0); White Blood Count 8.1 X10*3/uL (4.8-10.8)
[2023-08-17 17:00] LABS: HCG Quantitative < 2 mIU/mL; TSH reflex Free T4 1.46 uIU/mL (0.32-4.0)
[2023-08-18 06:38] LABS: CT PCR NOT DETECTED (Not Detect.); NG PCR NOT DETECTED (Not Detect.)
[2023-08-18 09:53] LABS: Prolactin 17.2 ng/mL
== END 2023-08-17 15:32 | disposition home or self-care (01) ==
LOC: HO.LAB 15:31
PROVIDERS: Visit Provider Obstetrics & Gynecology
DX: N93.9 Abnormal uterine and vaginal bleeding, unspecified (principal); Z20.2 Contact with and (suspected) exposure to infections with a predominantly sexual mode of transmission
CPT/HCPCS: 0353U; 84146; 84443; 84702; 85027

== ENCOUNTER 2023-09-03 15:14 | Outpatient (REF) | payer OTHER, BC, SELFPAY ==
--- NOTE | ~2023-09-03 | US_ITS ---
EXAMINATION: US PELVIS COMPLETE CLINICAL INFORMATION: Abnormal uterine bleeding COMPARISON: Pelvic ultrasound 09/11/2021 TECHNIQUE: Transabdominal and transvaginal imaging was performed. FINDINGS: The uterus is of normal size and echogenicity measuring 10.6 x 5.0 x 4.9 cm. A regular homogeneous endometrium is identified measuring 0.6 cm. Nabothian cysts in the cervix. The left ovary is surgically absent.. The right ovary measures 5.5 x 3.0 x 2.3 cm for a volume of 19.9 mL. The right ovary is remarkable for a 3.1 cm benign functional cyst, no follow-up imaging recommended. No suspicious adnexal mass. There is no pelvic free fluid. US/US pelvic and transvaginal IMPRESSION: 1. The left ovary is surgically absent. 2. The right ovary is remarkable for a 3.1 cm benign functional cyst, no follow-up imaging recommended. 3. Unremarkable sonographic appearance of the uterus.
== END 2023-09-03 15:15 | disposition home or self-care (01) ==
LOC: HO.US 15:14
PROVIDERS: PCP Internal Medicine; Visit Provider Obstetrics & Gynecology
DX: N93.9 Abnormal uterine and vaginal bleeding, unspecified (principal)
CPT/HCPCS: 76830; 76856

== ENCOUNTER 2023-09-30 14:57 | Outpatient (AMB) | payer OTHER, BC, SELFPAY ==
[2023-09-30 15:03] VITALS: BP 98/60; BMI 33.3
--- NOTE | 2023-09-30 15:03 | MHC.OFFVIS ---
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 Present (Abbi MARY) Accompanied by: Self / Same As Patient Allergies succinylcholine Allergy (Unknown, Verified 09/30/23 15:14) unk Is last menstrual period known: Yes Last menstrual period: 09/05/23 HPI Comments Details: Presenting for EMB ON LICENSE OF [facility] Surgical History History of left salpingo-oophorectomy Hx of tubal ligation Family History Mother Uterine cancer Maternal Aunt Breast cancer Maternal Grandmother Colon cancer Social History Household Members: Spouse and Children Housing: House Alcohol intake: never Patient Tobacco Use Status: Never used Tobacco Current occupational status: employed 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 hysteroscopy D&C) & the risks were discussed with the patient including but not limited: pain, uterine perforation, bleeding, infection, possible injury to bladder, bowel, ureter, possible need for blood transfusion with all its possible risks. The patient verbalized understanding all questions answered and signed consent. Urine test done in the office was negative The patient was placed into the dorsal lithotomy position; a speculum was inserted in the vagina. Using aseptic technique for the procedure, the cervix was cleansed with Betadine. The anterior lip of the cervix was grasped with a single tooth tenaculum. The uterus was sounded to 7 cm with a 4 mm Pipelle was used. Tissues samples were obtained and placed in formalin, in a patient labeled container and sent to the pathology department. At the end of the procedure, there was minimal bleeding noted The patient tolerated the procedure well and was discharged in good condition with the following instructions: Nothing in the vagina until the bleeding stops. No sex until the bleeding stops, to call if any of the following occurs: fever (>100.4), flu-like symptoms, abdominal pain, heavy bleeding, four smelling vaginal discharge. The patient was instructed to schedule a Follow up appointment in 2 weeks to discuss pathology results of the biopsy and treatment options. This note was generated with a voice recognition program. Some errors may have been overlooked during the review of this note. Sometimes these errors may affect the content or meaning of a given sentence. [id number] Biopsy Assessment & Plan Assessment & Plan (1) Abnormal uterine bleeding: Code(s): N93.9 - Abnormal uterine and vaginal bleeding, unspecified Category: Medical Plan: EMB done, see procedure note Orders: Orders AMB Endometrial Biopsy Today N93.9 - Abnormal uterine and vaginal bleeding, unspecified Coding Level of Care Code Procedure Only Diagnoses Abnormal uterine bleeding N93.9 CPT Codes Endometrial Biopsy - CPT: 40303-[id number] Biopsy ([id number])
== END 2023-09-30 15:21 | disposition home or self-care (01) ==
PROVIDERS: PCP Internal Medicine; Visit Provider Obstetrics & Gynecology
DX: N93.9 Abnormal uterine and vaginal bleeding, unspecified (principal); Z32.02 Encounter for pregnancy test, result negative
CPT/HCPCS: 58100

== ENCOUNTER 2023-09-30 14:57 | Outpatient (REF) | payer OTHER, BC, SELFPAY | END 2023-09-30 14:58 | disposition home or self-care (01) | LOC: HO.LNP 14:57 | PROVIDERS: PCP Internal Medicine; Visit Provider Obstetrics & Gynecology | DX: N93.9 Abnormal uterine and vaginal bleeding, unspecified (principal) | CPT/HCPCS: 58100; 81025; 88305 ==

== ENCOUNTER 2023-11-09 14:59 | Outpatient (AMB) | payer OTHER, BC, SELFPAY ==
[2023-11-09 15:14] VITALS: BMI 33.3
--- NOTE | 2023-11-09 15:14 | A.OFFVIS_ITS ---
Vital Signs 11/09/23 15:14 Height 5 ft 1 in Weight 176 lb 5.917 oz BMI 33.3 Intake Visit Reasons: EMB results Allergies succinylcholine Allergy (Unknown, Verified 09/30/23 15:14) unk HPI Comments Details: The patient is presenting for follow-up to discuss the results of her abnormal uterine bleeding workup and options of treatment. The following workup was done.: H&H= 12.9/38.7 TSH, prolactin, hCG, GC and chlamydia were negative. Endometrial biopsy pathology showed the following: Benign disordered proliferative endometrium with ectatic stromal vessels and focal stromal collapse; no atypia or carcinoma. Co testing was done in 08/16 was negative. Mammogram was in 12/17 was BI-RADS 1. Pelvic ultrasound showed the following: IMPRESSION: 1. The left ovary is surgically absent. 2. The right ovary is remarkable for a 3.1 cm benign functional cyst, no follow-up imaging recommended. 3. Unremarkable sonographic appearance of the uterus. 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 Sexual orientation: Straight/Heterosexual Gender identity: Female Female Reproductive History Menstrual Age of Menarche: 11 Review of Systems Const All systems reviewed & are unremarkable except as noted in HPI and below Reports as per HPI and Reports no additional complaints GI Reports no additional complaints Reports no additional complaints Physical Exam Vital Signs: BMI result Body Mass Index 33.3 Assessment & Plan Assessment & Plan (1) Abnormal ultrasound of breast: Code(s): R92.8 - Other abnormal and inconclusive findings on diagnostic imaging of breast Category: Medical Plan: Discussed with the patient the results of the work up done and options of treatment including Lysteda, control pills, Mirena IUD, endometrial ablation and hysterectomy. All pros, cons, risks and benefits if each option was discussed with the patient and the patient decided to go ahead with Mirena IUD so a more detailed discussion about it was conducted including mechanism of action, risks (uterine perforation, infection, injury to bladder, bowel, displacement, and others) benefits (hypo menorrhea, amenorrhea, ...). GC/CT were taken and the patient was instructed to schedule Mirena IUD insertion on day 1-5 of next cycle . All questions answered, the patient verbalized understanding Coding Level of Care Code Est Pt Level 3 (03972) Diagnoses Abnormal ultrasound of breast R92.8
== END 2023-11-09 16:17 | disposition home or self-care (01) ==
LOC: HO.HWS 14:59
PROVIDERS: PCP Internal Medicine; Visit Provider Obstetrics & Gynecology
DX: R92.8 Other abnormal and inconclusive findings on diagnostic imaging of breast (principal)
CPT/HCPCS: 99213

== ENCOUNTER 2023-12-21 15:17 | Outpatient (REF) | payer OTHER, BC, SELFPAY ==
--- NOTE | ~2023-12-21 | MM_ITS ---
EXAMINATION: MM SCREENING DIGITAL BREAST TOMOSYNTHESIS, BILATERAL CLINICAL INFORMATION: Screening. Asymptomatic. COMPARISON: Mammography: Comparison is made with available priors TECHNIQUE: Digital breast tomosynthesis is performed in both the craniocaudal and mediolateral oblique views along with computer-aided detection (CAD). Synthesized 2D images are generated from the tomosynthesis. FINDINGS: The breasts are heterogeneously dense, which may obscure small masses (ACR BI-RADS breast composition Category c). Bilateral circumscribed oval masses which wax and wane consistent with benign fibrocystic changes. There are no significant masses, abnormal calcifications, or other abnormalities. MM/MM tomosynthesis screening BI IMPRESSION: No mammographic evidence of malignancy. ASSESSMENT: BI-RADS BI-RADS 2 - Benign Findings RECOMMENDATION: Routine annual mammography screening. 1 year F/U This examination should not preclude the clinical evaluation of a suspicious palpable abnormality. This patient's information was entered into a reminder system with a target due date for their next mammogram. Electronically signed by: Lori Akhtar DO 01/15/2024 12:40 PM EDT
== END 2023-12-21 15:18 | disposition home or self-care (01) ==
LOC: HO.MAMMO 15:17
PROVIDERS: Visit Provider Internal Medicine
DX: Z12.31 Encounter for screening mammogram for malignant neoplasm of breast (principal)
CPT/HCPCS: 77063; 77067

== ENCOUNTER → 2023-12-21 15:30 | Outpatient (BNV) | payer OTHER, BC, SELFPAY | PROVIDERS: Visit Provider Internal Medicine | DX: Z12.31 Encounter for screening mammogram for malignant neoplasm of breast (principal) | CPT/HCPCS: 77063; 77067 ==